=== PATIENT | female | born 1950 | race Caucasian/White ===

== ENCOUNTER 2018-03-02 06:43 | Inpatient (IN) | payer MEDICARE, OTHER ==
[2018-03-02] MEDS ORDERED: Lidocaine 1% PF 30ml 10 MG/ML VIAL ONE (09:00)
[2018-03-02] MEDS ORDERED: HYDROmorphone HCL/PF 1 MG/ML DISP.SYRIN ONE (09:00)
[2018-03-02] MEDS ORDERED: ePHEDrine SULFATE 50 MG/1 ML IVP ONE ×2 (09:00→10:00)
[2018-03-02] MEDS ORDERED: SUGAMMADEX 200 mg/2mL 200 MG/2 ML VIAL IV ONE (09:00)
[2018-03-02] MEDS ORDERED: ceFAZolin SODIUM 1 GM VIAL ONE (09:00)
[2018-03-02] MEDS ORDERED: GLYCOPYRROLATE 0.2 MG/1 ML 1 ML ONE (09:00)
[2018-03-02] MEDS ORDERED: ONDANSETRON HCL/PF 4 MG/ 2ML VIAL ONE ×2 (09:00)
[2018-03-02] MEDS ORDERED: FAMOTIDINE/PF 20 MG/2 ML VIAL ONE ×2 (09:00)
[2018-03-02] MEDS ORDERED: fentaNYL CITRATE/PF 100 MCG/ 2ML AMP ONE ×2 (09:00→10:00)
[2018-03-02] MEDS ORDERED: LIDOCAINE HCL/PF 2% 100 MG/5 ML VIAL IJ ONE (09:00)
[2018-03-02] MEDS ORDERED: LACTATED RINGERS 1,000 ML IV.SOLN IV ONE ×2 (09:00)
[2018-03-02] MEDS ORDERED: SEVOFLURANE 250 ML LIQUID IH ONE (09:00)
[2018-03-02] MEDS ORDERED: DEXAMETHASONE SOD PHOS 4 MG/ML VIAL ONE (09:00)
[2018-03-02] MEDS ORDERED: ROCURONIUM BROMIDE 10 MG/ML 5ML VIAL ONE (09:00)
[2018-03-02] MEDS ORDERED: BUPIVACAINE HCL 0.25%/EPI. PF 30 ML VIAL IJ ONE (09:00)
[2018-03-02] MEDS ORDERED: PROPOFOL 200 MG/20 ML VIAL IV ONE (09:00)
[2018-03-02] MEDS ORDERED: fentaNYL CITRATE/PF 100 MCG/ 2ML AMP IVP PRN (11:33)
[2018-03-02] MEDS ORDERED: diphenhydrAMINE HCL 50 MG/ML VIAL IVP PRN (11:33)
[2018-03-02] MEDS ORDERED: PROMETHAZINE HCL 25 MG in 0.9 % SODIUM CHLORIDE 50 ML IV PRN (11:33)
[2018-03-02] MEDS ORDERED: ONDANSETRON HCL/PF 4 MG/ 2ML VIAL IVP PRN (11:33)
[2018-03-02] MEDS ORDERED: MORPHINE SULFATE 4 MG/ML PREFILLED SYR IVP PRN (11:33)
[2018-03-02] MEDS ORDERED: LEVALBUTEROL HCL 1.25 MG/3 ML AMPUL.NEB NEB PRN (11:33)
--- NOTE | 2018-03-02 11:46 | History and Physical Report ---
History of Present Illnes - History of Present Illness Reason for Visit: Morbid obestiy with s/p gastric sleeve procedure History of Present Illness: Patient is a 67-year-old white female wiith a history of morbid obesity. Patient BMI is 50.8. Patient has tried various weight loss methods without success. It was felt with her comorbidities that she would benefit from gastric sleeve procedure. Patient underwent a lap. gastric sleeve. Patient did not have any intraoperative complications. Patient has already been up walking with PT/OT- she appears to be doing very well- she feels that her pain is controlled at this time 08/24. She states that she is passing gas- she is eating ice chips. Educated patient on the importance of frequent ambulation to prevent blood clots and using the SCD's while in bed, discussed using the incentive spirometer frequently every hour to prevent resp. illness, and voiding in the hat in toilet so we can monitor strict I & Os. - Past Medical History Cardiac: HTN, Hyperlipidemia. denies: AFIB, [place] Pulmonary: denies: Asthma [employer]: denies: CVA, TIA Gastrointestinal: denies: GI bleed Heme/Onc: denies: Anemia NOS Hepatobiliary: denies: Hep A/B/C Psych: Depression Musculoskeletal: Osteoarthritis (hips/knees) Rheumatologic: denies: Rheumatoid arthritis ENT: denies: Sinusitis Renal/: Other (stress incontinence) Endocrine: obesity. denies: Diabetes Dermatology: denies: Cellulitis - Past Surgical History Past Surgical History: Appendectomy, Cholecystectomy, Hysterectomy, Other (umbilical hernia/ bladder sling) - Past Family History Mother Family History: Cancer Father Family History: Cancer - Past Social History Smoke: Quit (quit 12 years ago) Alcohol: None Drugs: None Lives: With Family (Her son and daughter are here with her today) Domestic Violence: Negative - Health Maintenance Health Maintenance: Influenza Vaccine, Pneumococcal Vaccine Influenza Vaccine: Current for this Influenza Season Pneumonia Vaccine: Yes Resuscitation Status: DNR-Patient has an Advance Directive on the chart Review of Systems - Review of Systems Constitutional: negative: Fever, Chills Eyes: vision change (wears glasses). negative: pain ENT: negative: Ear Pain, Ear Discharge, Nose Discharge Respiratory: SOB with Excertion (If she does to much). negative: Shortness of Breath Cardiovascular: negative: Chest Pain, Edema Gastrointestinal: Abdominal Pain (s/p surgery). negative: Nausea, Vomiting, Diarrhea, Constipation Genitourinary: Other (stress incontinence) Musculoskeletal: Back Pain (chronic pain) Skin: negative: Rash, Lesions Neurological: negative: Incoordination, Change in Speech - Medications/Allergies Allergies/Adverse Reactions: Allergies Allergy/AdvReac Type Severity Reaction Status Date / Time No Known Allergies Allergy Verified 03/02/18 11:26 Home Medications: Home Medications Aspirin [Lo-Dose Aspirin EC] 81 mg PO D 03/02/18 Atenolol [Tenormin] 50 mg PO D 03/02/18 Celecoxib [Celebrex] 200 mg PO D 03/02/18 Duloxetine HCl [Cymbalta] 60 mg PO D 03/02/18 Estradiol [Estrace] 1 mg PO D 03/02/18 Gabapentin [Neurontin] 600 mg PO QID 03/02/18 Lisinopril [Prinivil] 20 mg PO QD 03/02/18 Simvastatin [Zocor] 40 mg PO HS 03/02/18 Exam - Exam General: Alert, Oriented to Person, Oriented to Place, Oriented to Time, Cooperative HEENT: Atraumatic Neck: No: Stridor, Rigidity Carotids: NO bruit Lungs: Clear to auscultation, Normal air movement, Speaks full Sentences Cardiovascular: Regular rate, Normal S1, Normal S2, No murmurs Abdomen: Soft, Other (mild generalied tenderness to palpation), Decreased Bowel Sounds Integumentary: Normal, [place], Warm, Dry Extremities: No clubbing, No cyanosis, No edema, Normal pulses Neurological: Normal speech, Strength Equal Bilat (Using walker to ambulate at this time for safety) Psych/Mental Status: Mental status NL, Mood NL, Appropriate Affect, Intact Judgm ent Assessment/Plan - Assessment/Plan (1) S/P gastric surgery Status: Acute Current Visit: Yes Assessment: Patient has routine postoperative orders. Will monitor patient blood pressure.Patient was advised of the importance of walking and using the insentive spirometry. (2) Essential hypertension Status: Acute Current Visit: Yes Assessment: Stable, will remain off antihypertensive at this time. (3) Morbid obesity Status: Acute Current Visit: Yes VTE Assessment - RISK FACTOR SCORE VTE RISK FACTOR SCORES: AGE OVER 60 YEARS, OBESITY - RISK VTE MODERATE RISK: SCORE OF 2 (RISK PROXIMAL DVT 2-4%) PROPHYAXIS NEEDED
[2018-03-02] MEDS: ceFAZolin SODIUM 1 GM VIAL IV SCH (17:00)
[2018-03-02] MEDS: HYDROCODONE/ACETAMINOPHEN 15 ML SOLUTION PO PRN (17:15)
[2018-03-02] MEDS ORDERED: MORPHINE SULFATE 2 MG/ML PREFILLED SYR IVP PRN (17:54)
[2018-03-02] MEDS: GABAPENTIN 300 MG CAPSULE PO SCH ×2 (17:58→22:05)
[2018-03-02] MEDS: NORMAL SALINE 1,000 ML IV.SOLN IV SCH (19:20)
[2018-03-02 20:23] VITALS: BMI 112.1
[2018-03-02] MEDS: DULoxetine HCL 30 MG CAPSULE.DR PO SCH (22:02)
[2018-03-02] MEDS: FAMOTIDINE/PF 20 MG/2 ML VIAL IVP SCH (22:09)
[2018-03-03] MEDS: ceFAZolin SODIUM 1 GM VIAL IV SCH (02:55)
--- NOTE | 2018-03-03 08:31 | Inpatient Progress Note ---
Subjective - Required Recertification Statement I anticipate X number of days because-include discharge plan: 1 - Review of Systems Subjective: Post op Day #1 Patient states that she is doing well. Has a headache this AM, this is not unusual for her. Has had some mild nausea, no vomiting. States that she is urinating well. Pain seems to be well controlled at this time. Feels that she needs to have a BM but not one today. Maldonado.s been passing a small amount of flatus. HEENT: Head Aches Pulmonary: Denies: Dyspnea, Cough, Pleuritic Chest Pain Cardiovascular: Denies: Chest Pain Gastrointestinal: Nausea (mild), Abdominal Pain (mild, tolerable). Denies: Vomiting Genitourinary: Denies: Dysuria, Frequency Objective - Exam Vitals and I&O: Vital Signs Temp 98.8 F 03/03/18 06:00 Pulse 138 H 03/03/18 06:00 Resp 20 03/03/18 06:00 BP 138/62 03/03/18 06:00 Pulse Ox 98 03/03/18 06:00 Intake & Output 03/02/18 03/02/18 03/03/18 11:59 23:59 11:59 Intake Total 3130 790 Output Total 450 500 Balance 2680 290 Weight 278 kg 126.099 kg Intake: IV 2950 700 Left Forearm 2950 700 Oral 180 90 Output: Urine 450 500 Urine/Stool Mix 0 Other: Voiding Method Toilet Toilet General: Alert, Oriented to Person, Oriented to Place, Oriented to Time, Cooperative Neck: Supple Lungs: Clear to auscultation, Normal air movement, Speaks full Sentences. No: Wheezes, Rales, Rhonchi Cardiovascular: Regular rate, Normal S1, Normal S2, No murmurs Abdomen: Soft, Other (mild diffuse tenderness), Decreased Bowel Sounds Psych/Mental Status: Mental status NL, Mood NL, Appropriate Affect, Intact Judgment Assessment/Plan - Assessment/Plan (1) Morbid obesity Status: Acute Current Visit: Yes (2) s/p gastric sleeve Status: Acute Current Visit: Yes (3) Essential hypertension Status: Acute Current Visit: Yes Assessment: BP remains stable off antihypertensive medication.
[2018-03-03] MEDS: GABAPENTIN 300 MG CAPSULE PO SCH ×4 (10:11→21:36)
[2018-03-03] MEDS: NORMAL SALINE 1,000 ML IV.SOLN IV SCH ×3 (10:12→16:09)
[2018-03-03] MEDS: FAMOTIDINE/PF 20 MG/2 ML VIAL IVP SCH ×2 (10:12→21:36)
[2018-03-03] MEDS: HYDROCODONE/ACETAMINOPHEN 15 ML SOLUTION PO PRN ×3 (10:13→21:37)
[2018-03-03] MEDS ORDERED: ENOXAPARIN SODIUM 40 MG/0.4 ML DISP.SYRIN SQ SCH (12:00)
[2018-03-03] MEDS ORDERED: 0.9 % SODIUM CHLORIDE 50 ML IV ONE (21:23)
[2018-03-03] MEDS: DULoxetine HCL 30 MG CAPSULE.DR PO SCH (21:36)
[2018-03-04] MEDS: NORMAL SALINE 1,000 ML IV.SOLN IV SCH (04:21)
[2018-03-04 06:29] VITALS: BP 150/65
[2018-03-04] MEDS ORDERED: 0.9 % SODIUM CHLORIDE 50 ML IV ONE (07:47)
[2018-03-04] MEDS: FAMOTIDINE/PF 20 MG/2 ML VIAL IVP SCH (08:27)
[2018-03-04] MEDS: GABAPENTIN 300 MG CAPSULE PO SCH (08:34)
[2018-03-04] MEDS: HYDROCODONE/ACETAMINOPHEN 15 ML SOLUTION PO PRN (10:20)
--- NOTE | 2018-03-04 15:30 | Discharge Summary ---
Discharge Summary - Discharge Sumary History of Present Illness: Patient is a 67-year-old white female wiith a history of morbid obesity. Patient BMI is 50.8. Patient has tried various weight loss methods without success. It was felt with her comorbidities that she would benefit from gastric sleeve procedure. Patient underwent a lap. gastric sleeve. Patient did not have any intraoperative complications. Patient has already been up walking with PT/OT- she appears to be doing very well- she feels that her pain is controlled at this time 08/24. She states that she is passing gas- she is eating ice chips. Educated patient on the importance of frequent ambulation to prevent blood clots and using the SCD's while in bed, discussed using the incentive spirometer frequently every hour to prevent resp. illness, and voiding in the hat in toilet so we can monitor strict I & Os. Home Medications: Ambulatory Orders Medication Instructions Recorded Duloxetine HCl [Cymbalta] 60 mg PO D 03/02/18 Estradiol [Estrace] 1 mg PO D 03/02/18 Gabapentin [Neurontin] 600 mg PO QID 03/02/18 Lisinopril [Prinivil] 20 mg PO QD 03/02/18 Simvastatin [Zocor] 40 mg PO HS 03/02/18 Hydrocodone/Acetaminophen 30 ml PO Q6 #120 solution 03/04/18 [Hydrocodon-Acetamin 7.5-325/15] Allergies/Adverse Reactions: Allergies Allergy/AdvReac Type Severity Reaction Status Date / Time No Known Allergies Allergy Verified 03/02/18 11:26 Discharge Summary: On the day of admission patient was taken to the operating room where a laparoscopic gastric sleeve procedure was performed. Patient tolerated procedure well and did not have any intraoperative complications. Patient was placed on a clear liquid diet for 24 hours in advance to a full liquid diet. Patient did have some nausea during the first 24 hours which was treated with ondansteron on and promethazine. Patient was encouraged to use incentive spirometry several times an hour while awake. Patient urinary output remain stable. Patient blood pressure remained stable. At the time of dismissal patient was having some flatus, was tolerating her diet, and was ambulating well. Patient was subsequently discharged in stable condition. - Final Diagnosis (2) s/p gastric sleeve Problems: Patient with is advised to follow up with [facility] as scheduled. Patient was advised to read and follow the written to discharge instructions she carefully. She had any further questions or problems to contact [facility], her primary care physician, or call [facility] for instructions. (3) Essential hypertension Problems: At the time of dismissal patient was advised to stop her atenolol but to restart her lisinopril.
== END 2018-03-04 09:55 | disposition home or self-care (01) | DRG 621 ==
LOC: OPSURG 06:43 → SOUTH 11:08
PROVIDERS: ADMIT Family Medicine; ATTEND Family Medicine
DX: E66.01 Morbid (severe) obesity due to excess calories (principal); Z68.43 Body mass index [BMI] 50.0-59.9, adult; Z98.84 Bariatric surgery status; I10 Essential (primary) hypertension; E78.5 Hyperlipidemia, unspecified; M19.90 Unspecified osteoarthritis, unspecified site
CPT/HCPCS: 43235; 99221; 99222; 99238; J0690; J1100; J1170; J1650; J2001; J2270; J2405; J2704; J3010; J3490; S0028; 43775; A9270-GY; J7030; J7120